=== PATIENT | female | born 2000 | race Caucasian/White ===

== ENCOUNTER 2025-04-28 12:12 | Emergency (ER) | payer OTHER ==
[~2025-04-28] VITALS: Ht 165.1 cm; Wt 63.7 kg
[2025-04-28 12:23] VITALS: BP 144/98; PULSE 74; RESP 14; TEMP 98.1; O2SAT 97
--- NOTE | 2025-04-28 13:22 | Physician Documentation ---
History of Present Illness ~ Chief Complaint: Bite-animal Stated Complaint: DOG BITE Time Seen by MD: 12:46 HPI This is a 23-year-old female who presents requesting 2nd opinion for possible need for rabies prophylaxis series after a dog bite yesterday, patient was seen by urgent care yesterday who recommended against rabies vaccination. Patient reports she is on course of antibiotics from urgent care. Patient reports dog may occurred while she was biking resulting in a single puncture wound to her left posterior calf. Patient reports that the dog is domesticated dog, was wearing collar, and returned to its owners. Patient reports that she filled out a dog bite form through [employer] however does not have contact information for the owners of the dog therefore is concerned about its rabies status. Reports no other acute symptoms or concerns. Medication Reconciliation Allergies: Coded Allergies: No Known Allergies (Unverified , 04/28/25) Past Medical History Past Medical History: No Pertinent History Review of Systems ROS As stated above in the HPI, otherwise all systems are reviewed and negative. Physical Exam Vital Signs: Temperature: 98.1, Source: Temporal, Heart Rate: 74, Respiratory Rate: 14, BP: 144/98, Pulse Oximetry: 97, Weight: 63.700 Oxygen Flow Rate: 0 Physical Exam VITALS: Reviewed and as above. GENERAL: Alert, nontoxic appearing, no apparent distress. RESPIRATORY: No increased work of breathing, no respiratory distress, speaking in full clear sentences SKIN: Single puncture wound to left posterior calf, minimal surrounding erythema, no bleeding, no discharge, no swelling Progress Results/Orders Results/Orders Vital Signs 04/28/25 12:23 Temp 98.1 Pulse 74 Resp 14 B/P (MAP) 144/98 Pulse Ox 97 O2 Flow Rate 0 Medical Decision Making Findings This 23-year-old female presented requesting 2nd opinion for possible need of rabies prophylaxis after a dog bite yesterday patient was seen in urgent care yesterday and placed on antibiotics though told that she did not require rabies prophylaxis. As this was a domesticated dog in what appears to be a provoked bite along with no recent rabies cases in domesticated dogs in the county this is considered a low risk bite and rabies prophylaxis is not indicated at this time. Wound appears to be uncomplicated, patient is on appropriate antibiotics, exam benign and patient reported no other acute symptoms or concerns. Patient provided follow up instructions home care instructions and return to care precautions which he verbalized understanding. Differential Dx:Considerations: Include: Abrasion, Anaphylaxis, Cellulitis, Neurovascular injury, Punture wound, Retained foreign body, Other (Rabies exposure) Departure Time of Disposition: 13:24 Disposition: 01 HOME / SELF CARE / HOMELESS Impression: Primary Impression: Dog bite Qualified Codes: W54.0XXD - Bitten by dog, subsequent encounter Condition: Improved Discharge Instructions: Animal Bite, Adult, Rabies Additional Instructions: As this bite was from a domesticated dog it is considered low risk as there has not been any recent rabies cases in domesticated dogs in the area, however if you receive information from animal control that you will require rabies prophylaxis please return to the emergency department. Please follow up with your primary care provider in the next few days. Please return to the emergency department for any new or worsening concerning symptoms including but not limited to numbness or tingling to your leg. Referrals: NO PRIMARY CARE PROVIDER (PCP) Education Educated: Patient Educated regarding: diagnosis, treatment, prognosis, need for follow up Signature Scribe Signature: No scribe Attestation: The note accurately reflects work and decisions made by me.ULICES Alanis 04/29/25 10:33 BRANDAN PERSAUD Apr 28, 2025 13:22
== END 2025-04-28 13:54 | disposition home or self-care (01) ==
LOC: ER 12:14
DX: S81.852D Open bite, left lower leg, subsequent encounter (principal); W54.0XXD Bitten by dog, subsequent encounter
CPT/HCPCS: 99282